=== PATIENT | male | born 1950 | race Caucasian/White ===

== ENCOUNTER 2023-12-15 07:37 | Inpatient (IN) | payer MEDICARE, OTHER ==
[2023-12-15] VITALS (17 sets, daily range): BP systolic 99–137; BP diastolic 68–80; PULSE 62–82; RESP 16–20; TEMP 95.9–98.2; O2SAT 93–98
[~2023-12-15] VITALS: Ht 185.4 cm; Wt 102.1 kg
[2023-12-15] MEDS: PREGABALIN CAPSULE 75 MG CAP PO ONE (07:00)
[2023-12-15] MEDS: TRANEXAMIC ACID 20 ML ONE (07:07)
[~2023-12-15 07:37] MED LIST: CELE200C PO; LISI2.5T47 PO; METO25TA93 PO
[2023-12-15] MEDS: ACETAMINOPHEN IV 100 ML IV ONE (07:48)
[2023-12-15] MEDS: ceFAZolin 2 GM/D5W50ml 50 ML IV ONE (07:48)
[2023-12-15] MEDS: BUPIVACAINE 0.5% P/F INJ 10 ML VIAL ONE (07:49)
[2023-12-15] MEDS ORDERED: KETAMINE 50mg/ML 1ml syringe ONE (07:50)
[2023-12-15] MEDS ORDERED: MORPHINE SULF PF 5 MG/10 ML VIAL ONE (07:50)
[2023-12-15] MEDS ORDERED: fentaNYL CITRATE 100 MCG/2 ML VL ONE (07:51)
[2023-12-15] MEDS ORDERED: PHENYLEPHRINE HCL 10 MG/ML VL ONE (07:51)
[2023-12-15] MEDS ORDERED: ePHEDrine SULFATE 50 MG/ML AMP ONE (07:51)
[2023-12-15] MEDS ORDERED: PROPOFOL 10 MG/ML 20 ML IV ONE (07:51)
[2023-12-15] MEDS ORDERED: MIDAZOLAM HCL 2MG/2ML 2ml VIAL (1mg/ml) ONE (07:51)
[2023-12-15] MEDS ORDERED: KETOROLAC TROMETH 30 MG/ML 1ML VIAL ONE (07:51)
[2023-12-15] MEDS ORDERED: ONDANSETRON HCL 4 MG/2 ML VIAL ONE (07:51)
[2023-12-15] MEDS ORDERED: GLYCOPYRROLATE 0.2 MG/ML 1ML VIAL ONE (07:51)
[2023-12-15] MEDS: CELECOXIB 100 MG CAP PO ONE (08:00)
[2023-12-15] MEDS: ACETAMINOPHEN IV 1000 MG/100ML (10MG/ML) IV ONE (08:00)
[2023-12-15] MEDS: TETRACAINE 1% INJ 2 ML VIAL IJ ONE (08:10)
[2023-12-15] MEDS: VANCOMYCIN HCL 1000 MG VL ONE (09:22)
[2023-12-15] MEDS: KETOROLAC TROMETH 30 MG/ML 1ML VIAL ONE (09:24)
[2023-12-15] MEDS: BUPIVACAINE 0.25% INJ 50ML VIAL ONE (09:25)
[2023-12-15] MEDS: MORPHINE SULF PF 5 MG/10 ML VIAL ONE (09:26)
[2023-12-15] MEDS ORDERED: ONDANSETRON HCL 4 MG/2 ML VIAL IV PRN ×2 (10:45→11:15)
[2023-12-15] MEDS: ONDANSETRON HCL 4 MG/2 ML VIAL IV ONE (10:45)
[2023-12-15] MEDS ORDERED: NALOXONE HCL 0.4 MG/ML VIAL IV PRN (10:45)
[2023-12-15] MEDS ORDERED: KETOROLAC TROMETH 30 MG/ML 1ML VIAL IV PRN (10:45)
[2023-12-15] MEDS ORDERED: DexAMETHasone SOD PHOS 10MG/1ML VIAL INJ IV PRN (10:45)
[2023-12-15] MEDS ORDERED: NITROGLYCERIN 0.4 MG SL TAB SL PRN (11:15)
[2023-12-15] MEDS ORDERED: OXYCODONE W/ ACETAMINOPHEN 5/325MG TABLET PO PRN ×2 (11:15)
[2023-12-15] MEDS: LACTATED RINGER'S 1,000 ML IV SCH (11:15)
[2023-12-15] MEDS ORDERED: HYDROmorphone HCL 2 MG/ML VL/or syr IV PRN ×2 (11:15→12:00)
[2023-12-15] MEDS ORDERED: MORPHINE SULFATE INJ 2 MG/ml SYRG IV PRN (11:15)
[2023-12-15] MEDS ORDERED: hydrALAZINE HCL 20 MG/ML VL IV PRN (12:00)
[2023-12-15] MEDS: ceFAZolin 1GM/50ML 50 ML IV SCH (15:20)
[2023-12-15] MEDS: DOCUSATE SOD 100 MG CAP PO SCH (21:37)
[2023-12-15] MEDS: oxyCODONE ER 10 MG TAB PO SCH (21:39)
[2023-12-15] MEDS: CIPROFLOXACIN HYDROCHLORIDE 250 MG TAB PO SCH (21:44)
[2023-12-16] VITALS (15 sets, daily range): BP systolic 108–136; BP diastolic 51–99; PULSE 64–79; RESP 16–20; TEMP 96.5–98.2; O2SAT 92–97
[2023-12-16 06:50] LABS: Alanine Aminotransferase 17 U/L (7-40); Albumin 3.8 g/dL (3.2-4.8); Alkaline Phosphatase 64 U/L (46-116); Anion Gap 9 (5-15); Aspartate Aminotransferase 21 U/L (13-40); BUN/Creatinine Ratio 20.5 (10.0-20.0); Blood Urea Nitrogen 17 mg/dL (9-23); Calcium 9.1 mg/dL (8.5-10.1); Carbon Dioxide 22 mmol/L (20-30); Chloride 104 mmol/L (98-107); Glucose 129 mg/dL (74-106); Potassium 4.7 mmol/L (3.5-5.1); Sodium 135 mmol/L (136-145)
[2023-12-16 06:51] LABS: Bilirubin, Total 0.4 mg/dL (0.2-1.0); Total Protein 5.8 g/dL (5.7-8.2)
[2023-12-16 06:57] LABS: Basophils # (auto) 0 10 ^3/uL (0-0.2); Basophils % (auto) 0.1 % (0.0-2.0); Eosinophils # (auto) 0 10 ^3/uL (0-0.8); Hematocrit 41.1 % (41.0-53.0); Hemoglobin 14.1 g/dL (13.5-17.5); Lymphocytes # (auto) 1.4 10 ^3/uL (0.4-5.4); Lymphocytes % (auto) 10.9 % (10.0-50.0); Mean Corpuscular Hemoglobin 30.7 pg (28.0-32.0); Mean Corpuscular Hgb Conc. 34.3 g/dL (32.0-36.0); Mean Corpuscular Volume 89.6 fL (80.0-100.0); Monocytes # (auto) 0.9 10 ^3/uL (0-1.3); Monocytes % (auto) 7.1 % (0.0-12.0); Neutrophils # (auto) 10.5 10 ^3/uL (1.6-8.6); Neutrophils % (auto) 81.9 % (37.0-80.0); Nucleated Red Blood Cells % 0.1 %; Red Blood Cells 4.59 10^6/uL (4.5-5.90); Red Cell Distribution Width 13.3 % (11.8-14.3); White Blood Cell 12.8 10^3/uL (4.4-10.8)
[2023-12-16] MEDS: PANTOPRAZOLE 40 MG TAB PO SCH (09:33)
[2023-12-16] MEDS: ENOXAPARIN SOD 40 MG/0.4 ML SYRINGE SC SCH (09:34)
[2023-12-16] MEDS ORDERED: PATIENTS OWN MEDICATION (Metoprolol Succinate (Metoprolol Succinate Er) 25 MG) PO SCH (10:00)
[2023-12-16] MEDS ORDERED: PATIENTS OWN MEDICATION (Lisinopril 2.5 MG) PO SCH (10:00)
[2023-12-16] MEDS ORDERED: CELECOXIB 200 MG PO SCH (10:00)
== END 2023-12-16 15:43 | disposition home health service (06) | DRG 470 ==
LOC: SUR 07:37 → TELE 11:04 → TELE-WESTW 12:00
PROVIDERS: ADMIT Orthopaedic Surgery Adult Reconstructive Orthopaedic Surgery; ATTEND Internal Medicine
PROC: 8E0YXBZ Computer Assisted Procedure of Lower Extremity (ICD-10-PCS; 2023-12-15)
PROC: 0SRD0J9 Replacement of Left Knee Joint with Synthetic Substitute, Cemented, Open Approach (ICD-10-PCS; principal; 2023-12-15 08:18)
DX: M17.12 Unilateral primary osteoarthritis, left knee (principal); I10 Essential (primary) hypertension; M21.062 Valgus deformity, not elsewhere classified, left knee
CPT/HCPCS: 36415; 73562; 80053; 85025; 86850; 86900; 86901; 97110; 97116; 97163; 97530; G0378; J0131; J1885; J2250; J2405; J2704; J3490